=== PATIENT | female | born 1945 ===

== ENCOUNTER → 2018-09-24 | Outpatient (CLI) | payer MEDICARE, OTHER ==
[~2018-09-24] MED LIST: CIPR500 PO; HYDACE5 PO
== END | disposition home or self-care (01) ==
LOC: LAB SHORT 14:44 → PLD 14:44
DX: D48.5 Neoplasm of uncertain behavior of skin (principal)
CPT/HCPCS: 88305

== ENCOUNTER 2021-08-01 07:05 | Day surgery (SDC) | payer MEDICARE, OTHER ==
[~2021-08-01] VITALS: Ht 160 cm; Wt 46.0 kg
[~2021-08-01 07:05] MED LIST changes: +CALCIUM CARBON500 M1; +FISH OIL 1,2001 EAC7; +ICAPS AREDS2 S1 EACH; +Prinivil10 MG; +UBID100; +ZYRTEC10 M2
== END 2021-08-01 09:06 | disposition home or self-care (01) ==
LOC: ORSCSDS 07:05
PROVIDERS: Ophthalmology
PROC: 08RJ3JZ Replacement of Right Lens with Synthetic Substitute, Percutaneous Approach (ICD-10-PCS; principal; 2021-08-01 08:30)
DX: H25.11 Age-related nuclear cataract, right eye (principal); I10 Essential (primary) hypertension; Z79.899 Other long term (current) drug therapy
CPT/HCPCS: J2001; J2250; J3010; J3301; J7040; V2632

== ENCOUNTER 2021-08-22 07:45 | Day surgery (SDC) | payer MEDICARE, OTHER ==
[~2021-08-22] VITALS: Ht 160 cm; Wt 46.4 kg
== END 2021-08-22 09:50 | disposition home or self-care (01) ==
LOC: ORSCSDS 07:45
PROVIDERS: Ophthalmology
PROC: 08RK3JZ Replacement of Left Lens with Synthetic Substitute, Percutaneous Approach (ICD-10-PCS; principal; 2021-08-22 09:00)
DX: H25.12 Age-related nuclear cataract, left eye (principal); I10 Essential (primary) hypertension; Z79.899 Other long term (current) drug therapy
CPT/HCPCS: 82947; J2001; J2250; J3301; J7040; V2632

== ENCOUNTER → 2022-02-24 | Outpatient (CLI) | payer MEDICARE, OTHER | LOC: PLD 07:42 → LAB SHORT 07:42 | DX: D49.2 Neoplasm of unspecified behavior of bone, soft tissue, and skin (principal) | CPT/HCPCS: 88304 ==

== ENCOUNTER 2025-01-12 06:54 | Day surgery (SDC) | payer MEDICARE, OTHER ==
[~2025-01-12] VITALS: Ht 160 cm; Wt 17.8 kg
[2025-01-12] MEDS ORDERED: ALEN70 (07:19)
[2025-01-12 09:21] VITALS: BP 100/80
== END 2025-01-12 09:20 | disposition home or self-care (01) ==
LOC: ORSCSDS 06:54
PROVIDERS: Surgery
PROC: 0DBP8ZX Excision of Rectum, Via Natural or Artificial Opening Endoscopic, Diagnostic (ICD-10-PCS; principal; 2025-01-12 08:15)
PROC: 0DBH8ZX Excision of Cecum, Via Natural or Artificial Opening Endoscopic, Diagnostic (ICD-10-PCS; principal; 2025-01-12 08:15)
PROC: 0DBM8ZX Excision of Descending Colon, Via Natural or Artificial Opening Endoscopic, Diagnostic (ICD-10-PCS; principal; 2025-01-12 08:15)
DX: Z12.11 Encounter for screening for malignant neoplasm of colon (principal); Z86.0100 Personal history of colon polyps, unspecified; I10 Essential (primary) hypertension; M81.0 Age-related osteoporosis without current pathological fracture; R73.03 Prediabetes; R63.6 Underweight; Z79.899 Other long term (current) drug therapy
CPT/HCPCS: 88305; J2704; J7120